=== PATIENT | female | born 1935 | race Caucasian/White ===

== ENCOUNTER 2017-10-31 20:34 | Inpatient (IN) | payer MEDICARE ==
[~2017-10-31 20:34] MED LIST: ISOVUE-370 76%-LOCM 1 ML ONE
--- NOTE | 2017-10-31 23:37 | CT ---
EXAM: CT ANGIOGRAM OF THE HEAD CT PERFUSION 10/31/17 HISTORY: Altered mental status. Expressive aphasia. COMPARISON: None. TECHNIQUE: CT angiogram of the head is performed in the axial plane. Three dimensional reformatted images are james bmitted for interpretation. CT perfusion imaging is performed. FINDINGS: Noncontrast head CT demonstrates preservation of cortical gamboa-white matter differentiation. No midli ne shift. Chronic small vessel ischemic changes identified. No significant change when compared to th e CT performed earlier at [facility]. No pathologic enhancement of the brain parenchyma. CT ANGIOGRAM OF THE HEAD: There is tortuosity of the distal cervical right internal carotid artery. There is also tortuosity of the distal cervical left internal carotid artery. There is atherosclerosis with moderate narrowing of both cavernous carotid segments as well as modera te to severe narrowing of both paraclinoid segments. ANTERIOR CIRCULATION: Congenitally hypoplastic left A1 segment. Right A1 segment is patent and has appropriate luminal diam eter and enhancement. Left and right M1 segments have symmetric enhancement and luminal diameter. The re is mild ectasia and short grade irregularity involving the proximal right A2 segment. There may be mild stenosis. The left A2 segment is patent and slightly diminutive throughout its entire course wh en compared to the contralateral A2 segment. There is symmetric enhancement and overall symmetric dis tribution of vessels in the proximal left and right MCA distribution. POSTERIOR CIRCULATION: Atherosclerosis in intracranial internal carotid arteries with short segment moderate to severe steno sis in the visualized distal left vertebral artery. Limited evaluation of both PICA artery origins. T he basilar artery is patent. No significant stenosis. Left and right P1 segments have symmetric enhan cement and luminal diameter. CT PERFUSION: No evidence of abnormal increased mean transit time. No evidence of abnormal decreased cerebral blood flow or cerebral blood volume. IMPRESSION: 1. Extensive atherosclerosis as detailed above. There is atherosclerosis involving both intracra nial internal carotid arteries and the left vertebral artery. 2. No significant stenosis at the level of the [place]. 3. Asymmetrically prominent right A2 segment. Despite the right A2 segment being prominent, ther e is short segment mild stenosis. 4. No evidence of increased mean transit time. No evidence of decreased blood flow or decreased blood volume. The results of the study discussed with Dr. Bella Mcmillan, 10/31/17 at 11:22 p.m. Code CR POS: [facility]
[2017-11-01] MEDS ORDERED: hydrALAZINE 20 MG/ML VIAL SLOW IVP PRN (01:50)
[2017-11-01] MEDS ORDERED: Bisacodyl 5 MG TAB PO PRN (01:50)
[2017-11-01] MEDS ORDERED: Acetaminophen 325 MG TAB PO PRN (01:50)
[2017-11-01] MEDS ORDERED: Dextrose 5% in Water 1,000 ML IV PRN (01:52)
[2017-11-01] MEDS ORDERED: Dextrose 50% Abboject 50 ML SYRINGE SLOW IVP PRN (01:52)
--- NOTE | 2017-11-01 02:47 | HP ---
PRIMARY CARE PHYSICIAN: Yahaira Mukherjee MD CHIEF COMPLAINT: Difficulty speaking. HISTORY OF PRESENT ILLNESS: Ms. Felipe is a pleasant 82-year-old lady who was seen at [facility] on 11/01/2017. Patient is currently able to speak well and is able to provide most of the history. She reports that around 3:30 p.m. yesterday, she got a call from her . She was slurring her w ords and he could not understand her. She denies any chest pain or shortness of breath. She denies any other motor or sensory symptoms. She was seen in the emergency room at [place] and was subseq uently transferred here. Here, her symptoms have improved. REVIEW OF SYSTEMS: The following complete review of systems was negative, unless otherwise mentioned in the HPI or below: Constitutional: Weight loss or gain, sense of well-being, ability to conduct usual activities, exerc ise tolerance. Skin/Breast: Rash, itching, changes in hair growth or loss, nail changes, breast lumps, tenderness, swelling, nipple discharge. Eyes: Vision, double vision, tearing, blind spots, pain. ENT/Mouth: Headaches (location, time of onset, duration, precipitating factors), vertigo, lightheade dness, injury. Vision, double vision, tearing, blind spots, pain, nose bleeding, colds, obstruction, discharge, dental difficulties, gingival bleeding, dentures, neck stiffness, pain, tenderness, masses in thyroid or other areas. Cardiovascular: Precordial pain, substernal distress, palpitations, syncope, dyspnea on exertion, or thopnea, nocturnal paroxysmal dyspnea, edema, cyanosis, hypertension, heart murmurs, varicosities, ph lebitis, claudication. Respiratory: Pain, shortness of breath, wheezing, stridor, cough, hemoptysis, fever, or night sweats . Gastrointestinal: Poor appetite, dysphagia, indigestion, abdominal pain, heartburn, eructation, naus ea, vomiting, hematemesis, jaundice, constipation, or diarrhea, abnormal stools (jennifer-colored, tarry, bloody, greasy, foul smelling), flatulence, hemorrhoids, recent changes in bowel habits. Genitourinary: Urgency, frequency, dysuria, nocturia, hematuria, polyuria, oliguria, unusual (or fabian nge in) color of urine, stones, hesitancy, change in size of stream, dribbling, acute retention or in continence, libido, potency. Musculoskeletal: Pain, swelling, redness or heat of muscles or joints, limitation, of motion, muscul ar weakness, atrophy, cramps. Neurologic/Psychiatric: Convulsions, paralyzes, tremor, incoordination, paresthesias, difficulties w ith memory of speech, sensory or motor disturbances, or muscular coordination (ataxia, tremor), emoti onal problems, anxiety, depression, previous psychiatric care, unusual perceptions, hallucinations. Allergy/Immunologic: Skin rash, anemia, bleeding tendency, polydipsia, polyuria, intolerance to heat or cold. PAST MEDICAL HISTORY: Significant for diabetes mellitus type 2 and hypertension. PAST SURGICAL HISTORY: Significant for appendectomy and cataract surgery. SOCIAL HISTORY: Patient denies tobacco use, alcohol use, or recreational drug use. FAMILY HISTORY: Diabetes in her father. CODE STATUS: I discussed her code status. She is FULL CODE. ALLERGIES: No known drug allergies. CURRENT MEDICATIONS: Include Singulair 10 mg daily, hydrochlorothiazide 25 mg daily, aspirin 81 mg d aily, metformin 1000 mg 2 times a day, ramipril 10 mg daily, and carvedilol 6.25 mg 2 times a day. O f note, she was previously admitted with a transient ischemic attack. She did not want to start a ST ATIN, because she had side effects in the past. PHYSICAL EXAMINATION: GENERAL: Ms. Felipe is awake and alert, not in acute distress. VITAL SIGNS: Blood pressure is 210/100. Pulse is 71. She is breathing at rate of 16 and saturating 96% on room air. She is afebrile. EYES: No scleral icterus, no conjunctival pallor. ENT: Moist mucosal membranes, no oropharyngeal erythema or exudates. NECK: Supple, nontender, normal range of movement, trachea is midline. RESPIRATORY: Accessory muscles of breathing are not active. Chest wall movements are symmetric bila terally. LUNGS: Clear to auscultation without wheeze, rhonchi, or crepitations. CARDIOVASCULAR: S1 and S2 are heard, regular. Peripheral pulses palpable. No carotid bruit, no per icardial rub. ABDOMEN: Soft, nontender, bowel sounds heard, no hepatomegaly, no splenomegaly. NEUROLOGIC: Cranial nerves II-XII are intact. Power is 5/5 in all 4 extremities. No focal motor or sensory deficits. Deep tendon reflexes are 2+. Plantar reflexes are downgoing bilaterally. MUSCULOSKELETAL: Power in the 4 extremities as described above. SKIN: No rashes or subcutaneous nodules. PSYCHIATRIC: Normal mood, normal affect, patient is oriented to person, place, and time. LYMPHATIC: No cervical lymphadenopathy. LABORATORY DATA: Ms. Felipe's labs and investigations were reviewed. I reviewed her electrocardi ogram, which shows normal sinus rhythm, no ST changes to suggest an acute coronary syndrome. I also reviewed CT scan of the head, noncontrast, which does not show any bleed. She also had a CT angiogra m of the head and neck, which showed extensive atherosclerosis, no significant stenosis at the level of [place]. Her laboratory investigations will be reviewed once available. ASSESSMENT AND PLAN: Ms. Felipe is a pleasant 82-year-old lady who was seen at [facility] on 11/01/2017. Her problem list includes: 1. Expressive aphasia: Most likely secondary to transient ischemic attack. 2. Transient ischemic attack: Her symptoms are almost resolved. She will be admitted to the hospit al for further workup, including MRI brain, 2D echocardiogram, and Neurology consult. She will be st arted on aspirin at 325 mg daily. I am not starting her on STATIN, since she experienced side effect s in the past. 3. Diabetes mellitus: Continue home medications, start Accu-Cheks and insulin sliding scale. 4. Hypertension: Monitor vital signs, titrate antihypertensives as needed. LEVEL OF RISK: High. LEVEL OF COMPLEXITY: High.
[2017-11-01 03:48] LABS: #Eosinphils 0.1 thou/uL (0.0-0.7); #Lymphocytes 1.9 thou/uL (1.20-3.40); #Monocytes 0.6 thou/uL (0.11-0.59); #Neutrophils 5.8 thou/uL (1.40-6.50); %Basophils 0.5 % (0.0-1.0); %Eosinophils 0.9 % (0.0-10.0); %Lymphocytes 22.8 % (21.0-51.0); %Monocytes 7.2 % (0.0-10.0); %Neutrophils 68.7 % (42.0-75.0); Hemoglobin 14.5 g/dL (12.0-16.0); Mean Corpuscular HGB CONC 34.7 g/dL (32.0-36.0); Mean Corpuscular Hemoglobin 33.6 pg (27.0-31.0); Mean Corpuscular Volume 96.9 fl (81.0-99.0); Mean Platelet Volume 10.1 fL (7.4-10.4); Platelet Count 172 thou/uL (130-400); RBC Distribution Width 12.5 % (11.5-14.5); Red Blood Cell (RBC) Count 4.32 mill/uL (4.20-5.40); White Blood Cell (WBC) Count 8.4 thou/uL (4.8-10.8)
[2017-11-01 04:09] LABS: Anion Gap 12 mmol/L (10-20); BUN (Urea Nitrogen) 16 mg/dL (9.8-20.1); Calc. Creatinine Clearance 0 mL/min (70-130); Carbon Dioxide 26 mmol/L (23-31); Cardiac Risk 4.8 (Less than 4.5); Chloride 102 mmol/L (98-107); Cholesterol 224 mg/dl (< 200 Desired); Estimated GFR-MDRD 60; Glucose 214 mg/dL (83-110); HDL Cholesterol 47 mg/dL (>60 Neg Risk); LDL Cholesterol, Calculated 142 mg/dL; Sodium 136 mmol/L (136-145); Triglycerides 173 mg/dL (Less than 150)
[2017-11-01] MEDS ORDERED: Aspirin 325 MG TAB ONE (10:00)
[2017-11-01] MEDS ORDERED: Enoxaparin Sodium 40 MG/0.4 ML SYRINGE ONE (10:00)
[2017-11-01 11:59] VITALS: BMI 39.2
[2017-11-01] MEDS: Enoxaparin Sodium 40 MG/0.4 ML SYRINGE SC SCH (13:22)
[2017-11-01] MEDS: Aspirin 325 mg Enteric Coated Tablet PO SCH (13:22)
[2017-11-01] MEDS: hydrALAZINE 20 MG/ML VIAL SLOW IVP PRN (13:45)
--- NOTE | 2017-11-01 13:45 | MRI ---
EXAM: BRAIN MRI WITHOUT CONTRAST: HISTORY: Transfer for care for acute mental status change. Slurred speech. Facial droop. COMPARISON: 11/22/16. TECHNIQUE: A brain MRI is performed without intravenous Gadolinium administration. Multisequential, multiplanar imaging is performed. FINDINGS: Calvarium has a normal T1 marrow signal intensity. Midline brain parenchymal structures are unremark able. Stable atrophy along the anterior aspect of the corpus callosum. No parenchymal mass, mass ef fect, or midline shift. Albert volume is age appropriate. Cortical gamboa-white matter differentiation is preserved. Ventricles and sulci are identified. No hemorrhage on the axial gradient echo sequence. Central arterial flow voids are maintained. Small focus of restricted diffusion involving the left a nd right centrum semiovale. Additional small focus of restricted diffusion in the right temporal lob e subinsular white matter. Malacic change due to remote lacunar infarcts in the posterior left and right gustafson radiata are iden tified. Adequate aeration of the sinuses and mastoid air cells. IMPRESSION: Small foci of restricted diffusion involving the white matter structures in the left and right centru m semiovale. Small focus of restricted diffusion in the right temporal subinsular white matter. POS: [facility]
--- NOTE | 2017-11-01 13:50 | CON ---
NEUROLOGY CONSULTATION NOTE DATE OF CONSULTATION: 11/01/2017 CONSULTING PHYSICIAN: Hospitalist Service. IMPRESSION: 1. Transient ischemic attack. 2. Hypertension. 3. Diabetes. 4. Extensive small vessel ischemic changes on MRI. PLAN: 1. Aspirin. 2. Blood pressure control. 3. Statins cannot be used due to her intolerance. 4. The patient can be discharged home. HISTORY OF PRESENT ILLNESS: Ms. Felipe is an 82-year-old white female with the above noted medica l problems. She presented to the emergency room in [place] with expressive aphasia. She denied a ny right-sided weakness or numbness. The episode lasted approximately 3 hours by her account. She w as transferred here for care. She has had a CTA done, which showed some regions of the supraclinoid stenosis, but nothing in the extracranial region of significance. MRI of the brain was done earlier today, which showed extensive periventricular white matter ischemic changes that appears chronic. I did not note any areas of acute ischemic change on imaging at this point. She has never had any similar symptoms of this nature in the past. She denies any history of double vision, difficulty swallowing, slurred speech, facial numbness, headache or vertigo. PAST MEDICAL HISTORY: Listed above. ALLERGIES: None. SOCIAL HISTORY: No tobacco or alcohol use. FAMILY HISTORY: Noncontributory. REVIEW OF SYSTEMS: Otherwise, negative. PHYSICAL EXAMINATION: VITAL SIGNS: Blood pressure 215/105, pulse 81, respirations 18 and temperature 98.9. HEENT: Pupils are equal and reactive. Conjunctivae clear. Oropharynx clear. NECK: Supple. EXTREMITIES: No cyanosis. NEUROLOGIC: She is alert and appropriate. Her speech is fluent and clear. Cranial nerves II-XII we re intact. Motor exam showed good strength bilaterally. There was no fix or drift. Sensation was i ntact to light touch. She can walk independently. No abnormal movements were seen. IMAGING DATA: EKG showed sinus rhythm. Echocardiogram is pending. SUMMARY: This is an elderly woman with risk factors for vascular disease and she presents with trans ient aphasia, suggesting a peripheral vessel transient occlusion. She was not on antiplatelet therap y. She cannot tolerate statins. I would start with aspirin and be happy to follow up with her as an outpatient.
[2017-11-01] MEDS ORDERED: Ramipril 5 MG CAP PO SCH (15:00)
--- NOTE | 2017-11-01 16:05 | PDOC.EVN ---
Event Note - Event Note Event Note: Pt seen and examined.chart reviewed in detail. doing better. MRi shows small vessel chr ischemic chnages.Cont full dose ASA.pt reports statin intolerance.start Fish oil for now. Neurology recs noted. Will Dc home if BP stabilizes.Restart home meds and monitor. symptom free for now. ECHo w NL EF
[2017-11-01] MEDS: Carvedilol 3.125 MG TAB PO SCH (17:09)
[2017-11-01] MEDS: HumaLOG 300 UNITS/3 ML VIAL SC PRN (17:10)
[2017-11-01] MEDS ORDERED: Atorvastatin Calcium 10 MG TAB PO SCH (21:00)
[2017-11-02] MEDS: hydrALAZINE 20 MG/ML VIAL SLOW IVP PRN ×2 (00:06→15:41)
[2017-11-02] MEDS: HumaLOG 300 UNITS/3 ML VIAL SC PRN ×3 (06:31→15:49)
[2017-11-02] MEDS: Montelukast Sodium 10 mg Tablet PO SCH (08:50)
[2017-11-02] MEDS: Enoxaparin Sodium 40 MG/0.4 ML SYRINGE SC SCH (08:50)
[2017-11-02] MEDS: Ramipril 5 MG CAP PO SCH (08:51)
[2017-11-02] MEDS: Aspirin 325 mg Enteric Coated Tablet PO SCH (08:51)
[2017-11-02] MEDS: Hydrochlorothiazide 25 MG TAB PO SCH (08:51)
[2017-11-02] MEDS: Carvedilol 3.125 MG TAB PO SCH ×2 (08:51→17:07)
[2017-11-02] MEDS: metFORMIN 500 MG TAB PO SCH ×2 (08:52→17:06)
[2017-11-02] MEDS: Amlodipine 10 MG TAB PO SCH (11:23)
--- NOTE | 2017-11-02 15:45 | PDOC.PN ---
- Subjective Encounter Start Date: 11/02/17 Encounter Start Time: 15:43 Subjective: no new complaints -: no headache,vison chnages,nausea - Objective Resuscitation Status: Resuscitation Status FULL:Full Resuscitation MAR Reviewed: Yes Vital Signs & Weight: Vital Signs (12 hours) Temp Pulse Resp BP BP Pulse Ox 11/02/17 15:41 70 194/80 H 11/02/17 15:39 98.6 F 70 20 194/80 H 95 11/02/17 11:54 97.8 F 67 20 188/98 H 95 11/02/17 11:23 69 16 211/103 H 11/02/17 08:00 97.8 F 75 20 11/02/17 07:37 97.8 F 75 20 190/100 H 95 11/02/17 04:20 184/82 H 11/02/17 04:05 97.8 F 67 20 224/106 H 98 Weight Weight 242 lb 12.8 oz I&O: 11/01/17 11/02/17 11/03/17 06:59 06:59 06:59 Intake Total 610 480 Output Total 2 Balance 608 480 Result Diagrams: 11/01/17 03:29 11/01/17 03:29 Additional Labs: Accuchecks 11/02/17 11/02/17 11/01/17 11:00 05:10 21:16 POC Glucose 257 H 211 H 270 H 11/01/17 16:59 POC Glucose 256 H Phys Exam - Physical Examination Constitutional: NAD HEENT: PERRLA, moist MMs, sclera anicteric, TM's clear, oral pharynx no lesions , 2+ tonsils flushed Neck: no nodes, no JVD, supple, full ROM Respiratory: no wheezing, no rales, no rhonchi, clear to auscultation bilateral Cardiovascular: RRR, no significant murmur, no rub, gallop Gastrointestinal: soft, non-tender, no distention, positive bowel sounds Musculoskeletal: no edema, pulses present Neurological: non-focal, normal sensation, moves all 4 limbs Psychiatric: normal affect, A&O x 3 Skin: no rash Dx/Plan (1) TIA (transient ischemic attack) Status: Acute Comment: ASA.Statin intolerance (2) Hypertensive urgency Code(s): I16.0 - HYPERTENSIVE URGENCY Status: Acute (3) DM type 2 (diabetes mellitus, type 2) Status: Acute - Plan DVT proph w/SCDs Add Norvasc.increase Coreg w HR monitoring.PRN clonidine -: DC home only if BP better controlled -: cont ASA * . Review of Systems - Review of Systems Constitutional: negative: fever, chills, sweats, weakness, malaise, other ENT: negative: Ear Pain, Ear Discharge, Nose Pain, Nose Discharge, Nose Congestion, Mouth Pain, Mouth Swelling, Throat Pain, Throat Swelling, Other Respiratory: negative: Cough, Dry, Shortness of Breath, Hemoptysis, SOB with Excertion, Pleuritic Pain, Sputum, Wheezing Cardiovascular: negative: chest pain, palpitations, orthopnea, paroxysmal nocturnal dyspnea, edema, light headedness, other Gastrointestinal: negative: Nausea, Vomiting, Abdominal Pain, Diarrhea, Constipation, Melena, Hematochezia, Other Genitourinary: negative: Dysuria, Frequency, Incontinence, Hematuria, Retention , Other Musculoskeletal: negative: Neck Pain, Shoulder Pain, Arm Pain, Back Pain, Hand Pain, Leg Pain, Foot Pain, Other Neurological: negative: Weakness, Numbness, Incoordination, Change in Speech, Confusion, Seizures, Other - Medications/Allergies Allergies/Adverse Reactions: Allergies Allergy/AdvReac Type Severity Reaction Status Date / Time No Known Drug Allergies Allergy Verified 11/21/16 14:56 Medications: Current Medications Acetaminophen (Tylenol) 650 mg PO Q4H PRN PRN Reason: Headache/Fever or Pain Amlodipine Besylate (Norvasc) 10 mg PO DAILY [facility] Last Admin: 11/02/17 11:23 Dose: 10 mg Aspirin (Ecotrin) 325 mg PO DAILY [facility] Last Admin: 11/02/17 08:51 Dose: 325 mg Bisacodyl (Dulcolax) 10 mg PO DAILYPRN PRN PRN Reason: Constipation Carvedilol (Coreg) 12.5 mg PO BID [facility] Clonidine (Catapres) 0.1 mg PO Q4H PRN PRN Reason: SBP >160 Dextrose/Water (Dextrose 50%) 25 gm SLOW IVP PRN PRN PRN Reason: Hypoglycemia Enoxaparin Sodium (Lovenox) 40 mg SC 0900 [facility] Last Admin: 11/02/17 08:50 Dose: 40 mg Glucagon (Glucagon) 1 mg IM PRN PRN PRN Reason: Hypoglycemia Hydralazine HCl (Apresoline) 10 mg SLOW IVP Q4H PRN PRN Reason: BP > 190/90 Last Admin: 11/02/17 15:41 Dose: 10 mg Hydrochlorothiazide (Hydrochlorothiazide) 25 mg PO DAILY [facility] Last Admin: 11/02/17 08:51 Dose: 25 mg Dextrose/Water (D5w) 1,000 mls @ 0 mls/hr IV .Q0M PRN; As Directed PRN Reason: Hypoglycemia Insulin Human Lispro (Humalog) 0 units SC .MILD SLIDING SCALE PRN PRN Reason: Mild Correctional Scale Last Admin: 11/02/17 11:24 Dose: 4 units Metformin HCl (Glucophage) 1,000 mg PO BID-[facility] Last Admin: 11/02/17 08:52 Dose: Not Given Montelukast Sodium (Singulair) 10 mg PO DAILY [facility] Last Admin: 11/02/17 08:50 Dose: 10 mg Ramipril (Altace) 10 mg PO DAILY [facility] Last Admin: 11/02/17 08:51 Dose: 10 mg
[2017-11-03] MEDS: cloNIDine 0.1 MG TAB PO PRN ×2 (00:31→11:20)
[2017-11-03] MEDS: HumaLOG 300 UNITS/3 ML VIAL SC PRN ×3 (06:17→17:22)
[2017-11-03] MEDS: metFORMIN 500 MG TAB PO SCH ×2 (08:16→17:22)
[2017-11-03] MEDS: Hydrochlorothiazide 25 MG TAB PO SCH (08:16)
[2017-11-03] MEDS: Enoxaparin Sodium 40 MG/0.4 ML SYRINGE SC SCH (08:16)
[2017-11-03] MEDS: Amlodipine 10 MG TAB PO SCH (08:17)
[2017-11-03] MEDS: Ramipril 5 MG CAP PO SCH (08:17)
[2017-11-03] MEDS: Carvedilol 3.125 MG TAB PO SCH (08:17)
[2017-11-03] MEDS: Montelukast Sodium 10 mg Tablet PO SCH (08:18)
[2017-11-03] MEDS: Aspirin 325 mg Enteric Coated Tablet PO SCH (08:18)
--- NOTE | 2017-11-03 15:31 | CT ---
CT BRAIN WITHOUT CONTRAST: Technique: Multiple axial tomograms were obtained through the head without IV enhancement. History: Stroke alert. New left sided weakness which is resolving according to his history. Comparison: 11-01-17. That exam revealed evidence of tiny lacunar infarcts in both cerebral hemispheres . FINDINGS: There is evidence of severe chronic ischemic white matter change which was also noted on MRI. Acute a nd subacute lacunar infarcts within the ischemic white matter change cannot be assessed by CT. There is no evidence of cortical infarct. No evidence of hemorrhage. No evidence of mass effect. IMPRESSION: Severe chronic ischemic white matter changes. No evidence of acute cortical infarct or hemorrhage. Findings were related to ordering physician at 1:33 p.m. POS: [facility]
--- NOTE | 2017-11-03 15:34 | PDOC.PN ---
- Subjective Encounter Start Date: 11/03/17 Encounter Start Time: 15:32 Subjective: DC done earlier today but pt had a code green prior to leaving -: nurses reported chnages in mentation w slurred speech -: at bedside.Pt seen & examined-baseline now - Objective Resuscitation Status: Resuscitation Status FULL:Full Resuscitation MAR Reviewed: Yes Vital Signs & Weight: Vital Signs (12 hours) Temp Pulse Pulse Resp BP BP BP 11/03/17 13:06 62 141/62 H 11/03/17 12:44 57 L 141/46 H 11/03/17 11:20 185/68 H 11/03/17 09:20 16 168/62 H 11/03/17 08:15 98.5 F 70 16 11/03/17 08:00 98.5 F 70 16 11/03/17 04:40 136/74 11/03/17 04:00 98.3 F 67 16 182/68 H BP Pulse Ox 11/03/17 13:06 11/03/17 12:44 11/03/17 11:20 11/03/17 09:20 11/03/17 08:15 223/86 H 95 11/03/17 08:00 11/03/17 04:40 11/03/17 04:00 91 L Weight Weight 246 lb I&O: 11/02/17 11/03/17 11/04/17 06:59 06:59 06:59 Intake Total 610 1560 960 Output Total 2 Balance 608 1560 960 Result Diagrams: 11/01/17 03:29 11/01/17 03:29 Additional Labs: Accuchecks 11/03/17 11/03/17 11/03/17 13:09 10:51 06:01 POC Glucose 232 H 264 H 208 H 11/02/17 11/02/17 11/02/17 22:01 16:59 15:49 POC Glucose 175 H 277 H 377 H Radiology Reviewed by me: Yes (Stat Brain CT-) Phys Exam - Physical Examination Constitutional: NAD HEENT: PERRLA, moist MMs, sclera anicteric, oral pharynx no lesions Neck: no nodes, no JVD, supple, full ROM Respiratory: no wheezing, no rales, no rhonchi, clear to auscultation bilateral Cardiovascular: RRR, no significant murmur Gastrointestinal: soft, non-tender, no distention, positive bowel sounds Musculoskeletal: no edema, pulses present Neurological: non-focal, normal sensation, moves all 4 limbs Psychiatric: normal affect, A&O x 3 Skin: no rash Dx/Plan (1) TIA (transient ischemic attack) Status: Acute Comment: ASA.Statin intolerance (2) Hypertensive urgency Code(s): I16.0 - HYPERTENSIVE URGENCY Status: Acute (3) DM type 2 (diabetes mellitus, type 2) Status: Acute - Plan DVT proph w/SCDs reports similar symptoms for months-carmen early dementia -: will refer to Neurology as an Outpt.carmen vascular but FH of [facility]'s -: Brain Ct w/o acute changes. -: Low HR and BP noted.will reduce Coreg back to home doses -: Cancel DC and monitor Overnight.pt agreeable * . Review of Systems - Review of Systems Constitutional: negative: fever, chills, sweats, weakness, malaise, other Respiratory: negative: Cough, Dry, Shortness of Breath, Hemoptysis, SOB with Excertion, Pleuritic Pain, Sputum, Wheezing Cardiovascular: negative: chest pain, palpitations, orthopnea, paroxysmal nocturnal dyspnea, edema, light headedness, other Gastrointestinal: negative: Nausea, Vomiting, Abdominal Pain, Diarrhea, Constipation, Melena, Hematochezia, Other Genitourinary: negative: Dysuria, Frequency, Incontinence, Hematuria, Retention , Other Musculoskeletal: negative: Neck Pain, Shoulder Pain, Arm Pain, Back Pain, Hand Pain, Leg Pain, Foot Pain, Other Neurological: negative: Weakness, Numbness, Incoordination, Change in Speech, Confusion, Seizures, Other - Medications/Allergies Allergies/Adverse Reactions: Allergies Allergy/AdvReac Type Severity Reaction Status Date / Time No Known Drug Allergies Allergy Verified 11/21/16 14:56 Medications: Current Medications Acetaminophen (Tylenol) 650 mg PO Q4H PRN PRN Reason: Headache/Fever or Pain Amlodipine Besylate (Norvasc) 10 mg PO DAILY [facility] Last Admin: 11/03/17 08:17 Dose: 10 mg Aspirin (Ecotrin) 325 mg PO DAILY [facility] Last Admin: 11/03/17 08:18 Dose: 325 mg Bisacodyl (Dulcolax) 10 mg PO DAILYPRN PRN PRN Reason: Constipation Carvedilol (Coreg) 6.25 mg PO BID[facility] Clonidine (Catapres) 0.1 mg PO Q4H PRN PRN Reason: SBP >160 Last Admin: 11/03/17 11:20 Dose: 0.1 mg Dextrose/Water (Dextrose 50%) 25 gm SLOW IVP PRN PRN PRN Reason: Hypoglycemia Enoxaparin Sodium (Lovenox) 40 mg SC 0900 [facility] Last Admin: 11/03/17 08:16 Dose: 40 mg Glucagon (Glucagon) 1 mg IM PRN PRN PRN Reason: Hypoglycemia Hydralazine HCl (Apresoline) 10 mg SLOW IVP Q4H PRN PRN Reason: BP > 190/90 Last Admin: 11/02/17 15:41 Dose: 10 mg Hydrochlorothiazide (Hydrochlorothiazide) 25 mg PO DAILY [facility] Last Admin: 11/03/17 08:16 Dose: 25 mg Dextrose/Water (D5w) 1,000 mls @ 0 mls/hr IV .Q0M PRN; As Directed PRN Reason: Hypoglycemia Insulin Human Lispro (Humalog) 0 units SC .MILD SLIDING SCALE PRN PRN Reason: Mild Correctional Scale Last Admin: 11/03/17 11:18 Dose: 4 units Metformin HCl (Glucophage) 1,000 mg PO BID-[facility] Last Admin: 11/03/17 08:16 Dose: 1,000 mg Montelukast Sodium (Singulair) 10 mg PO DAILY [facility] Last Admin: 11/03/17 08:18 Dose: 10 mg Ramipril (Altace) 10 mg PO DAILY [facility] Last Admin: 11/03/17 08:17 Dose: 10 mg
[2017-11-03] MEDS: Carvedilol 6.25 MG TAB PO SCH (17:22)
--- NOTE | 2017-11-03 21:49 | CON ---
DATE OF CONSULTATION: 11/03/2017 REASON FOR CONSULTATION: This is a re-consultation done by Dr. Dena Leone for acute onset left fa cial weakness and left-sided upper extremity weakness. HISTORY OF PRESENT ILLNESS: Ms. Felipe is a pleasant 82-year-old female, who has been r e-consulted for evaluation of acute onset left facial weakness and left upper extremity weakness. Ap parently, the patient had presented on 11/01/2017 with a complaint of acute onset of expressive aphas ia and right facial droop. Her symptoms had resolved on arrival to the ER. She had CTA head and nec k with CT brain perfusion, which were unremarkable. She was not given any TPA as her symptoms had re solved and no endovascular procedure was performed due to no endovascular abnormality identified. Sh e had MRI brain done, which did shows 3 tiny areas of restricted diffusion suggestive of acute stroke . She was started on aspirin 325 mg daily and was planned for discharge to home today. She had got dressed and while waiting for her , she had a sudden onset of left facial droop and left upper extremity weakness. Code green was initiated. She had a CT head without contrast, which showed no acute intracranial abnormality. Her symptoms resolved within 5 minutes. I have been asked to [facility] evaluate for this recurrent episode. On my evaluation, the patient does not recall the symptoms. She denies having any headache, chest pain, palpitation, vision changes, diplopia, ptosis, numbness, tingling, or weakness. She denies dysarthria. PHYSICAL EXAMINATION: VITAL SIGNS: Blood pressure of 140/52, pulse of 61, temperature of 98, respirations of 20, O2 sats o f 95% on room air. GENERAL: Well-developed, well-nourished female in no apparent distress. RESPIRATORY: Clear to auscultation bilaterally. CARDIOVASCULAR: Regular rate and rhythm. NEUROLOGIC: Mental status: The patient is awake, alert, oriented x3. Speech and language: Fluent speech. Cranial nerves: Pupils are 3 mm and reactive. Visual hunt are intact. Extraocular muscl es are intact. No nystagmus is noted. Face is symmetric. Tongue and uvula midline. Motor exam tacos wed normal tone and bulk with 5/5 strength in both upper and lower extremities. Sensory: Sensation is intact and symmetric. Coordination intact to [id number] tapping bilaterally. IMAGING STUDIES: CT head without contrast done today was reviewed, which showed no acute intracrania l abnormality. MRI brain without contrast done on 11/01/2017 was reviewed, which showed 3 tiny areas of restricted diffusion. IMPRESSION: 1. Embolic stroke. 2. Malignant hypertension. 3. Diabetes. Ms. Felipe is a pleasant 82-year-old female who presented with the initial episode of ex pressive aphasia and right-sided weakness and now had an episode of left facial droop and left upper extremity weakness. This has now resolved. On my neurological exam, there is no focal weakness note d. I have reviewed her MRI brain, which does show 3 tiny areas of restricted diffusion. They are in a different territory. Given that, underlying embolism needs to be excluded. I have reviewed her t elemetry report, which has been normal. At this time, we will recommend continuing her on aspirin 32 5 mg daily for secondary stroke prevention. I will keep her in the hospital overnight for observatio n. If she is stable and no recurrence of episode, she is okay to be discharged to home. She will ne ed a followup with Cardiology as outpatient to rule out paroxysmal AFib. Thank you for your consultation.
[2017-11-04] MEDS: HumaLOG 300 UNITS/3 ML VIAL SC PRN (06:02)
[2017-11-04] MEDS: Amlodipine 10 MG TAB PO SCH (07:59)
[2017-11-04] MEDS: cloNIDine 0.1 MG TAB PO PRN (07:59)
[2017-11-04] MEDS: Montelukast Sodium 10 mg Tablet PO SCH (07:59)
[2017-11-04] MEDS: Aspirin 325 mg Enteric Coated Tablet PO SCH (07:59)
[2017-11-04] MEDS: Hydrochlorothiazide 25 MG TAB PO SCH (07:59)
[2017-11-04] MEDS: metFORMIN 500 MG TAB PO SCH ×2 (08:00→16:44)
[2017-11-04] MEDS: Ramipril 5 MG CAP PO SCH (08:00)
[2017-11-04] MEDS: Carvedilol 6.25 MG TAB PO SCH ×2 (08:00→16:44)
[2017-11-04] MEDS: Enoxaparin Sodium 40 MG/0.4 ML SYRINGE SC SCH (08:05)
[2017-11-04] MEDS ORDERED: cloNIDine 0.1 MG TAB PO SCH (09:00)
[2017-11-04] MEDS ORDERED: Hydrochlorothiazide 25 MG TAB PO SCH (09:00)
--- NOTE | 2017-11-04 14:06 | PDOC.PN ---
- Subjective Encounter Start Date: 11/04/17 Encounter Start Time: 14:04 Subjective: feels much better.no new events - Objective MAR Reviewed: Yes Vital Signs & Weight: Vital Signs (12 hours) Temp Pulse Resp BP BP BP Pulse Ox 11/04/17 12:00 98.2 F 61 20 158/59 H 95 11/04/17 09:47 142/58 H 11/04/17 09:07 198/80 H 11/04/17 08:00 98.6 F 66 20 198/80 H 93 L 11/04/17 07:59 66 198/80 H 11/04/17 07:35 98.6 F 66 20 198/80 H 93 L 11/04/17 05:58 158/72 H 11/04/17 04:43 97.6 F 97 16 Weight Weight 243 lb I&O: 11/03/17 11/04/17 11/05/17 06:59 06:59 06:59 Intake Total 360 Balance 360 Result Diagrams: 11/01/17 03:29 11/01/17 03:29 Additional Labs: Accuchecks 11/04/17 11/04/17 11/03/17 10:57 06:01 22:03 POC Glucose 233 H 181 H 205 H Microbiology 10/31/17 17:43 Urine giron catheter Urine Culture - Final NO GROWTH AT 48 HOURS 10/31/17 18:45 Venous blood - Left Hand Blood Culture - Preliminary NO GROWTH AT 48 HOURS Radiology Reviewed by me: Yes Phys Exam - Physical Examination Constitutional: NAD HEENT: PERRLA, moist MMs, sclera anicteric, oral pharynx no lesions Neck: no nodes, no JVD, supple, full ROM Respiratory: no wheezing, no rales, no rhonchi, clear to auscultation bilateral Cardiovascular: RRR, no significant murmur Gastrointestinal: soft, non-tender, no distention, positive bowel sounds Musculoskeletal: no edema, pulses present Neurological: non-focal, normal sensation, moves all 4 limbs Dx/Plan (1) TIA (transient ischemic attack) Status: Acute Comment: ASA.Statin intolerance (2) Hypertensive urgency Code(s): I16.0 - HYPERTENSIVE URGENCY Status: Acute (3) DM type 2 (diabetes mellitus, type 2) Status: Acute - Plan DVT proph w/SCDs DC home if BP remains stable. -: OP cardiology f/u for possible embolic stroke.NSR.ECHO w/o cardiomyopathy -: HD stable * . Review of Systems - Review of Systems Constitutional: negative: fever, chills, sweats, weakness, malaise, other ENT: negative: Ear Pain, Ear Discharge, Nose Pain, Nose Discharge, Nose Congestion, Mouth Pain, Mouth Swelling, Throat Pain, Throat Swelling, Other Respiratory: negative: Cough, Dry, Shortness of Breath, Hemoptysis, SOB with Excertion, Pleuritic Pain, Sputum, Wheezing Cardiovascular: negative: chest pain, palpitations, orthopnea, paroxysmal nocturnal dyspnea, edema, light headedness, other Gastrointestinal: negative: Nausea, Vomiting, Abdominal Pain, Diarrhea, Constipation, Melena, Hematochezia, Other Genitourinary: negative: Dysuria, Frequency, Incontinence, Hematuria, Retention , Other Musculoskeletal: negative: Neck Pain, Shoulder Pain, Arm Pain, Back Pain, Hand Pain, Leg Pain, Foot Pain, Other Neurological: negative: Weakness, Numbness, Incoordination, Change in Speech, Confusion, Seizures, Other - Medications/Allergies Allergies/Adverse Reactions: Allergies Allergy/AdvReac Type Severity Reaction Status Date / Time No Known Drug Allergies Allergy Verified 11/21/16 14:56 Medications: Current Medications Acetaminophen (Tylenol) 650 mg PO Q4H PRN PRN Reason: Headache/Fever or Pain Amlodipine Besylate (Norvasc) 10 mg PO DAILY [facility] Last Admin: 11/04/17 07:59 Dose: 10 mg Aspirin (Ecotrin) 325 mg PO DAILY [facility] Last Admin: 11/04/17 07:59 Dose: 325 mg Bisacodyl (Dulcolax) 10 mg PO DAILYPRN PRN PRN Reason: Constipation Carvedilol (Coreg) 6.25 mg PO BID-[facility] Last Admin: 11/04/17 08:00 Dose: 6.25 mg Clonidine (Catapres) 0.1 mg PO Q4H PRN PRN Reason: SBP >160 Last Admin: 11/04/17 07:59 Dose: 0.1 mg Dextrose/Water (Dextrose 50%) 25 gm SLOW IVP PRN PRN PRN Reason: Hypoglycemia Enoxaparin Sodium (Lovenox) 40 mg SC 0900 [facility] Last Admin: 11/04/17 08:05 Dose: 40 mg Glucagon (Glucagon) 1 mg IM PRN PRN PRN Reason: Hypoglycemia Hydralazine HCl (Apresoline) 10 mg SLOW IVP Q4H PRN PRN Reason: BP > 190/90 Last Admin: 11/02/17 15:41 Dose: 10 mg Hydrochlorothiazide (Hydrochlorothiazide) 25 mg PO QAM [facility] Dextrose/Water (D5w) 1,000 mls @ 0 mls/hr IV .Q0M PRN; As Directed PRN Reason: Hypoglycemia Insulin Human Lispro (Humalog) 0 units SC .MILD SLIDING SCALE PRN PRN Reason: Mild Correctional Scale Last Admin: 11/04/17 06:02 Dose: 2 units Metformin HCl (Glucophage) 1,000 mg PO BID-[facility] Last Admin: 11/04/17 08:00 Dose: 1,000 mg Montelukast Sodium (Singulair) 10 mg PO DAILY [facility] Last Admin: 11/04/17 07:59 Dose: 10 mg Ramipril (Altace) 10 mg PO DAILY [facility] Last Admin: 11/04/17 08:00 Dose: 10 mg
[2017-11-04 15:52] VITALS: BP 167/57; TEMP 97.8
[2017-11-05] MEDS ORDERED: Hydrochlorothiazide 25 MG TAB PO SCH (09:00)
== END 2017-11-04 17:19 | disposition home or self-care (01) | DRG 69 ==
LOC: ERS 20:34 → ERHOLD 11-01 00:16 → 2SE 11-01 00:49 → OBSVTOIN 11-03 17:10
PROVIDERS: ADMIT Internal Medicine; ATTEND Internal Medicine
DX: G45.9 Transient cerebral ischemic attack, unspecified (principal); G81.94 Hemiplegia, unspecified affecting left nondominant side; E11.9 Type 2 diabetes mellitus without complications; R47.81 Slurred speech; I10 Essential (primary) hypertension; Z79.82 Long term (current) use of aspirin; Z86.73 Personal history of transient ischemic attack (TIA), and cerebral infarction without residual deficits; R29.810 Facial weakness; I16.0 Hypertensive urgency
CPT/HCPCS: 0042T; 36415; 36416; 70450; 70496; 70551; 80048; 80061; 85025; 93306; 96372; G8978-GP-CH; G8979-GP-CH; G8980-GP-CH; G8987-GO-CH; G8988-GO-CH; G8989-GO-CH; G8996-GN-CH; G8997-GN-CH; J0360; J1650

== ENCOUNTER 2020-01-07 11:14 | Inpatient (IN) | payer MEDICARE ==
--- NOTE | 2020-01-07 11:52 | RAD ---
RADIOGRAPH CHEST 1 VIEW: DATE: 01/07/2020 HISTORY: 84-year-old female with altered mental status. Hyperglycemia. Concern for aspiration and pneumonia. FINDINGS: There are no airspace densities, pulmonary edema, pneumothorax, or cardiomegaly. The lateral costophr enic angles are sharp. Pulmonary scarring at left lateral base. Chronic subluxation of right glenohumeral joint related to old humeral head fracture deformity. IMPRESSION: No acute cardiopulmonary findings.
[2020-01-07 12:04] LABS: #Eosinphils 0.2 thou/uL (0.0-0.7); #Lymphocytes 1.7 thou/uL (1.20-3.40); #Monocytes 0.5 thou/uL (0.11-0.59); #Neutrophils 6.3 thou/uL (1.40-6.50); %Basophils 0.4 % (0.0-1.0); %Eosinophils 2.2 % (0.0-10.0); %Monocytes 5.6 % (0.0-10.0); %Neutrophils 72.8 % (42.0-75.0); Hemoglobin 14.1 g/dL (12.0-16.0); Mean Corpuscular Hemoglobin 31.4 pg (27.0-31.0); Mean Corpuscular Volume 98.1 fL (78.0-98.0); Mean Platelet Volume 10.3 fL (7.4-10.4); Platelet Count 195 thou/uL (130-400); RBC Distribution Width 12.4 % (11.5-14.5); Red Blood Cell (RBC) Count 4.49 mill/uL (4.20-5.40); White Blood Cell (WBC) Count 8.7 thou/uL (4.8-10.8)
--- NOTE | 2020-01-07 12:13 | CT ---
Head CT without contrast 01/07/2020: COMPARISON: 11/03/2017 HISTORY: Syncope, altered mental status TECHNIQUE: Axial CT imaging at 5 mm intervals from vertex through skull base without contrast FINDINGS: Imaged paranasal sinuses and mastoid air cells are well-aerated. Atherosclerotic calcificat ion of the cavernous carotid arteries and distal vertebral arteries noted. No displaced calvarial fracture. No intracranial hemorrhage, midline shift, or mass effect. There is extensive periventricul ar, deep, and subcortical white matter hypodensity, evidence of extensive small vessel disease. There is encephalomalacia within the temporal region on the right suggesting an area of prior infarct ion. IMPRESSION: No intracranial hemorrhage. Severe small vessel disease with evidence of prior right temp oral infarction. If there is clinical concern for acute infarction, brain MRI advised.
[2020-01-07 12:29] LABS: ALT (SGPT) 17 U/L (8-55); AST (SGOT) 13 U/L (5-34); Albumin 3.9 g/dL (3.4-4.8); Alkaline Phosphatase 75 U/L (40-110); Anion Gap 14 mmol/L (10-20); BUN (Urea Nitrogen) 25 mg/dL (9.8-20.1); Bilirubin, Total 0.4 mg/dL (0.2-1.2); Calc. Creatinine Clearance 0 mL/min (70-130); Calcium 9.7 mg/dL (7.8-10.44); Carbon Dioxide 29 mmol/L (23-31); Chloride 103 mmol/L (98-107); Estimated GFR-MDRD 56; Globulin 2.6 g/dL (2.4-3.5); Glucose 104 mg/dL (83-110); Potassium 4.3 mmol/L (3.5-5.1); Protein, Total 6.5 g/dL (6.0-8.3); Sodium 142 mmol/L (136-145)
[2020-01-07 12:53] LABS: Bacteria/HPF 3+ HPF (None Seen); Bilirubin Negative (Negative); Blood, Urine Negative (Negative); Clarity Turbid (Clear); Glucose, Urine (Dipstick) Normal (Negative); Leukocyte 25 Leu/uL (Negative); Nitrite 2+ (Negative); Protein, Urine (Dipstick) 20 mg/dL (Neg-Trace); RBC/HPF 0-3 HPF (0-3); Squamous Epithelial 0-3 HPF (0-3); Urobilinogen Normal mg/dL (Less than 2)
[2020-01-07] MEDS ORDERED: cefTRIAXone\\ROCEPHIN 2 GM VIAL ONE (13:53)
[2020-01-07] MEDS ORDERED: Aspirin Chewable 81 MG TAB ONE (14:08)
[2020-01-07] MEDS ORDERED: Senokot S 8.6-50 MG TAB PO PRN (14:22)
[2020-01-07] MEDS ORDERED: Acetaminophen 325 MG TAB PO PRN (14:22)
[2020-01-07] MEDS ORDERED: PROVENTIL INHALER 6.7 G (200 INHALATIONS) INH PRN (14:23)
[2020-01-07] MEDS ORDERED: cloNIDine 0.1 MG TAB PO PRN (14:23)
[2020-01-07 15:11] LABS: Cardiac Risk 4.3 (Less than 4.5)
--- NOTE | 2020-01-07 15:41 | MRI ---
MRI BRAIN WITHOUT CONTRAST: HISTORY: CVA, syncope, altered mental status COMPARISON: 11/01/2017 CORRELATION: CT scan from 01/07/2020. FINDINGS: There is a tiny focus of restricted diffusion in the right centrum semiovale and a 13 mm focus of res tricted diffusion in the posterior medial aspect of the left frontal lobe. There is encephalomalacia due to old infarction in the right temporal lobe. A small infarction is seen in the right testis cerebellar hemisphere. There are multiple foci of T2 prolongation in the periventricular white matter, consistent with chronic small vessel ischemic disease. The ventricular size is appropriate and the basilar cisterns are patent. No evidence of acute hemorrhage, midline shift or abnormal extra-axial fluid collections is seen. IMPRESSION: Small acute lacunar infarctions in the right centrum semiovale and left frontal lobe..
--- NOTE | 2020-01-07 16:04 | MRI ---
MR ANGIOGRAM OF BRAIN: Date: 01/07/2020 HISTORY: Altered mental status. Possible CVA. COMPARISON: None. TECHNIQUE: MR angiogram of the red devil of [place] is performed in the axial plane utilizing 3D time-of -flight imaging. Three-dimensional maximum intensity projection images are submitted for interpretati on. CORRELATION: CT angiogram of head dated 10/31/2017. FINDINGS: Axial 3D [id number] images have some limited evaluation due to motion degradation. Nevertheless, there appears to be long segment mild to moderate stenosis involving the left cavernous and paraclino id segment. Anterior circulation demonstrates grossly symmetric flow-related signal in the M1 segments. Diminutiv e left A1 segment is redemonstrated. Right A2 segment is unremarkable. There does not appear to be si gnificant flow-related signal in the proximal right A2 segment. Nonspecific prominence at the level o f the anterior communicating artery. The possibility of a small aneurysm cannot be entirely excluded. Limited evaluation of intracranial left vertebral artery. Right vertebral artery appears to demonstra te short segment moderate stenosis. The right vertebral artery appears to be the predominantly/sole-s upplying vessel to the basilar artery. There does appear to be short segment severe stenosis involvin g the mid basilar artery. There does appear to be short segment mild narrowing of the mid left P1 seg ment. The right P1 segment appears to be patent. IMPRESSION: 1. 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 2. 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 3. Overall limited evaluation. Further evaluation with CT angiogram of the brain versus conventional angiography is recommended. POS: CET
[2020-01-07 18:52] VITALS: BMI 33.3
--- NOTE | 2020-01-07 20:53 | HP ---
CHIEF COMPLAINT: Syncopal episode and TIA-like symptoms. HISTORY OF PRESENT ILLNESS: An 84-year-old female, very young looking and healthy, went to [employer] and had a witnessed syncopal episode. They also noted her right-sided facial droopy, but that resolved within minutes. The patient did not have any prodrome symptoms, headache, blurriness, tingling, or nausea sensation. The patient denies any lower abdominal pain or flank pain. No dysuria or hematuria. No travel in the last two years. No sick contacts. Her was admitted for pacemaker placement and just discharged at around 11 o'clock and sitting next to his today. Both the patient and her spouse are able to give me a history. The patient had a similar episode in October. She was admitted for expressive aphasia secondary to TIA. At that time, her imaging studies were quite negative. She was not tolerating statin during her last hospitalization, so she is not on Lipitor. Echo done during the last visit in October showed EF of 60%, normal left ventricle size and left atrium. done in 2018; at that time, small foci of restricted diffusion in the white matter structures in the left and right centrum semiovale. Her admission was in 2018 for similar TIA symptoms. ALLERGIES: SHE HAS NO KNOWN DRUG ALLERGY. REVIEW OF SYSTEMS: Thirteen-point review of systems reviewed with the patient. Denies any fever, night sweats, or chills. No appetite change or weight loss. Denies headache, blurriness, tingling, or numbness in her extremities. No productive cough, chest pain, orthopnea, PND, or lower extremity edema. Denies nausea, vomiting, abdominal pain, constipation, diarrhea, hematuria, dysuria, or hematochezia. Denies any polyuria or polydipsia. Denies any rash. No stated depression or anxiety. PAST MEDICAL HISTORY: 1. Episodes of TIA in the past. 2. Type 2 diabetes mellitus. SOCIAL HISTORY: The patient does not smoke or drink alcohol. She lives with her spouse. FAMILY HISTORY: Noncontributory on 84-year-old female. PHYSICAL EXAMINATION: GENERAL: She is afebrile, normotensive. HEENT: Pupils are equal, round, and reactive to light. Anicteric. Mucous membranes are moist. CARDIOVASCULAR: Regular rate and rhythm without murmurs, rubs, or gallops. LUNGS: Clear to auscultation bilaterally without wheezing, rales, or rhonchi. ABDOMEN: Soft, nontender, nondistended. Good bowel sounds. EXTREMITIES: Without any pitting edema. NEUROLOGIC: No focal deficits. Cranial nerves 2 to 12 grossly intact. Strength and sensation grossly and globally intact. LABORATORY DATA: CBC in the normal range. Complete metabolic panel also in the normal range. Urine was little cloudy, nitrite and esterase positive, bacteria 3+. CT head, no intracranial hemorrhage, small vessel disease with evidence of prior right temporal infarction. Chest x-ray, no acute cardiopulmonary finding. IMPRESSION AND PLAN: 1. An 84-year-old obese female with a history of transient ischemic attack in the past as well as type 2 diabetes mellitus, presenting with another transient ischemic attack. Symptoms are right facial droopiness, that is resolved. No tPA time scale and symptoms resolved. Neurologically, she is intact. She was also noted to have a syncopal episode. She will be admitted in the telemetry monitoring. A stroke workup including MRI, MRA, 2D echo, as well as TSH, A1c, and lipid panel. Physical Therapy consult to follow up with us. The patient does not exhibit any sign of motor weakness, but for the completeness of the stroke workup, we will consult them as well. If there is any abnormality in the MRI, we will consider neurology consult. At this time, it is not warranted. a. I believe her transient ischemic attack symptoms may be triggered by urinary tract infection. We will follow with the urine culture. Until then, empiric antibiotic with ceftriaxone. 2. Syncopal episode. It could be vasovagal. Follow with a 2D echo as well as telemonitoring in the next 24 hours. Permissive hypertension. 3. Orthostatic vitals. 4. She can continue with a diabetic diet. 5. Once the MRI is negative, then we can give her oral anticoagulant until then prophylaxis with the sequential compression devices. 6. Full code. Job ID: [id number] [facility]
[2020-01-07] MEDS ORDERED: Atorvastatin Calcium 20 MG TAB PO SCH (21:00)
[2020-01-07] MEDS: Carvedilol 6.25 MG TAB PO SCH (22:25)
[2020-01-08 05:16] LABS: Hemoglobin A1c 5.6 % (4.0-6.0)
[2020-01-08] MEDS: Amlodipine 10 MG TAB PO SCH (09:53)
[2020-01-08] MEDS: Hydrochlorothiazide 25 MG TAB PO SCH (09:53)
[2020-01-08] MEDS: Aspirin 325 mg Enteric Coated Tablet PO SCH (09:53)
[2020-01-08] MEDS: Montelukast Sodium 10 mg Tablet PO SCH (09:53)
[2020-01-08] MEDS: Carvedilol 6.25 MG TAB PO SCH ×2 (09:53→17:24)
[2020-01-08] MEDS: Ramipril 5 MG CAP PO SCH (09:54)
--- NOTE | 2020-01-08 12:44 | PDOC.HOSPP ---
- Subjective Encounter Date: 01/08/20 Encounter Time: 10:10 Subjective: pt feels ok. UTI w.. Ecoli. echo not done. MRI rept d/w her. lacunar infarct. - Objective Vital Signs & Weight: Vital Signs (12 hours) Temp Pulse Pulse Pulse Resp BP BP 01/08/20 11:43 97.7 F 58 L 16 01/08/20 09:25 64 68 162/68 H 164/71 H 01/08/20 07:24 97.5 F L 62 16 01/08/20 04:05 97.7 F 62 18 BP BP BP BP Pulse Ox 01/08/20 11:43 188/78 H 92 L 01/08/20 09:25 01/08/20 07:24 165/68 H 153/71 H 171/82 H 95 01/08/20 04:05 118/64 96 Weight Weight 213 lb I&O: 01/07/20 01/08/20 01/09/20 06:59 06:59 06:59 Intake Total 120 Balance 120 Result Diagrams: 01/07/20 11:44 01/07/20 11:44 Hospitalist ROS - Medication Medications: Active Medications Generic Name Dose Route Start Last Admin Trade Name Freq PRN Reason Stop Dose Admin Amlodipine Besylate 10 mg 01/08/20 09:00 01/08/20 09:53 Norvasc PO 10 mg DAILY ESPINOZA Administration Aspirin 325 mg 01/08/20 09:00 01/08/20 09:53 Ecotrin PO 325 mg DAILY [facility] Administration Carvedilol 6.25 mg 01/07/20 17:00 01/08/20 09:53 Coreg PO 6.25 mg BID- ESPINOZA Administration Hydrochlorothiazide 25 mg 01/08/20 09:00 01/08/20 09:53 Hydrochlorothiazide PO 25 mg DAILY [facility] Administration Montelukast Sodium 10 mg 01/08/20 09:00 01/08/20 09:53 Singulair PO Not Given DAILY ESPINO[facility] Ramipril 10 mg 01/08/20 09:00 01/08/20 09:54 Altace PO 10 mg DAILY ESPINO[facility] Administration - Exam General Appearance: NAD, awake alert Eye: PERRL ENT: normocephalic atraumatic Neck: supple Heart: RRR Respiratory: CTAB, normal chest expansion Gastrointestinal: soft, normal bowel sounds Neurological: cranial nerve grossly intact, no focal deficits Hosp A/P - Plan TIA - her sxs resolved MRI report lacunar infarct and left frontal infarct neuro consult palced ASA, liptiro HLP - not on statin -started lipitor ECOli UTI -sens pending -on CTX dispo - prefers to go home. pending echo and Neuro input.
[2020-01-08] MEDS: cefTRIAXone\\ROCEPHIN 1 GM in Sodium Chloride 0.9% 100 ML IVPB SCH (14:37)
[2020-01-08] MEDS: metFORMIN 500 MG TAB PO SCH (17:24)
[2020-01-08] MEDS: Atorvastatin Calcium 20 MG TAB PO SCH (22:44)
[2020-01-09] MEDS: Hydrochlorothiazide 25 MG TAB PO SCH (08:12)
[2020-01-09] MEDS: Carvedilol 6.25 MG TAB PO SCH ×2 (08:12→17:13)
[2020-01-09] MEDS: Ramipril 5 MG CAP PO SCH (08:12)
[2020-01-09] MEDS: Amlodipine 10 MG TAB PO SCH (08:12)
[2020-01-09] MEDS: Aspirin 325 mg Enteric Coated Tablet PO SCH (09:34)
[2020-01-09] MEDS: metFORMIN 500 MG TAB PO SCH ×2 (09:34→17:13)
[2020-01-09] MEDS: Montelukast Sodium 10 mg Tablet PO SCH (09:34)
--- NOTE | 2020-01-09 13:55 | PDOC.HOSPP ---
- Subjective Encounter Date: 01/09/20 Encounter Time: 13:45 Subjective: f/u for acute/subacute lacunar infarcts in R centrum semiovale/ L frontal lobe on current ASA/Lipitor. Nursing reports labile BP despite current BP regimen. Pt states she feels ok overall except for weakness. - Objective Vital Signs & Weight: Vital Signs (12 hours) Temp Pulse Resp BP BP BP BP 01/09/20 13:08 61 01/09/20 13:07 209/85 H 01/09/20 12:29 99.7 F H 66 18 209/85 H 01/09/20 09:25 130/56 L 01/09/20 08:12 58 L 193/74 H 01/09/20 08:07 98.6 F 58 L 20 193/74 H 01/09/20 08:00 154/74 H 01/09/20 07:50 01/09/20 05:33 97.8 F 60 12 BP BP BP Pulse Ox Pulse Ox 01/09/20 13:08 187/73 H 01/09/20 13:07 01/09/20 12:29 96 01/09/20 09:25 167/76 H 170/73 H 01/09/20 08:12 01/09/20 08:07 94 L 01/09/20 08:00 93 L 01/09/20 07:50 94 L 01/09/20 05:33 151/71 H 92 L Weight Weight 213 lb I&O: 01/08/20 01/09/20 01/10/20 06:59 06:59 06:59 Intake Total 120 480 300 Balance 120 480 300 Result Diagrams: 01/07/20 11:44 01/07/20 11:44 Additional Labs: Microbiology 01/07/20 12:30 Urine clean catch Urine Culture - Final Escherichia coli Laboratory Tests 01/07/20 01/07/20 01/08/20 11:44 11:44 04:50 Hemoglobin A1c 5.6 Triglycerides 191 H Cholesterol 179 LDL Cholesterol, Calc 99 HDL Cholesterol 42 TSH 3rd Generation [phone] Radiology Reviewed by me: Yes (MRI - lacunar infarcts in R centrum semiovale/L frontal lobe, ECHO - neg) EKG Reviewed by me: Yes (Tele - SR) Hospitalist ROS - Medication Medications: Active Medications Generic Name Dose Route Start Last Admin Trade Name Freq PRN Reason Stop Dose Admin Amlodipine Besylate 10 mg 01/08/20 09:00 01/09/20 08:12 Norvasc PO 10 mg DAILY [facility] Administration Aspirin 325 mg 01/08/20 09:00 01/09/20 09:34 Ecotrin PO 325 mg DAILY [facility] Administration Atorvastatin Calcium 20 mg 01/08/20 21:00 01/08/20 22:44 Lipitor PO 20 mg HS ESPINOZA Administration Clonidine 0.1 mg 01/07/20 14:23 01/09/20 13:07 Catapres PO 0.1 mg Q4H PRN Administration SBP >160 Hydrochlorothiazide 25 mg 01/08/20 09:00 01/09/20 08:12 Hydrochlorothiazide PO 25 mg DAILY [facility] Administration Ceftriaxone Sodium 1 gm/ 100 mls @ 200 mls/hr 01/08/20 14:00 01/08/20 14:37 Sodium Chloride IVPB 100 mls 1400 ESPINOZA Administration Metformin HCl 1,000 mg 01/08/20 17:00 01/09/20 09:34 Glucophage PO 1,000 mg BID-WM [facility] Administration Montelukast Sodium 10 mg 01/08/20 09:00 01/09/20 09:34 Singulair PO Not Given DAILY [facility] Ramipril 10 mg 01/08/20 09:00 01/09/20 08:12 Altace PO 10 mg DAILY [facility] Administration - Exam General Appearance: NAD, awake alert Eye: PERRL, anicteric sclera ENT: normocephalic atraumatic Neck: supple, symmetric, no JVD, no thyromegaly, no lymphadenopathy Heart: RRR, no murmur, no gallops, no rubs, normal peripheral pulses Respiratory: CTAB, no wheezes, no rales, no ronchi, normal chest expansion Gastrointestinal: soft, non-tender, non-distended, normal bowel sounds, no palpable masses Extremities: no cyanosis, no clubbing, no edema Skin: normal turgor, no lesions Neurological: cranial nerve grossly intact, no new deficit Musculoskeletal: normal tone, generalized weakness Psychiatric: A&O x 3 Hosp A/P (1) CVA (cerebral vascular accident) Code(s): I63.9 - CEREBRAL INFARCTION, UNSPECIFIED Status: Acute Qualifiers: Laterality of affected vessel: bilateral Plan: small lacunar infarcts noted, continue ASA/Lipitor, BP control (2) HTN (hypertension) Code(s): I10 - ESSENTIAL (PRIMARY) HYPERTENSION Status: Chronic Qualifiers: Hypertension type: essential hypertension Qualified Code(s): I10 - Essential (primary) hypertension Plan: Labile, increase Coreg 12.5mg BID, continue Amlodipine/HCTZ/Altace, serial BP monitoring (3) Hypertensive urgency Code(s): I16.0 - HYPERTENSIVE URGENCY Status: Acute (4) CKD (chronic kidney disease) stage 3, GFR 30-59 ml/min Status: Chronic Plan: Stable currently, avoid nephrotoxic meds and limit contrast exposure (5) DM type 2 (diabetes mellitus, type 2) Status: Chronic Plan: Continue ISS, Metformin, serial accuchecks - Plan PT/OT, director of social services, out of bed/ambulate, DVT proph w/SCDs Stable currently Continue ASA/Lipitor Increase Coreg 12.5mg BID Continue current BP regimen OOB with PT Likely home in 24h if BP trend improved
[2020-01-09] MEDS ORDERED: Iopamidol 370 76% 100 ML VIAL ONE (14:27)
[2020-01-09] MEDS: cefTRIAXone\\ROCEPHIN 1 GM in Sodium Chloride 0.9% 100 ML IVPB SCH (14:44)
--- NOTE | 2020-01-09 16:24 | EKG ---
Test Reason : Blood Pressure : / mmHG Vent. Rate : 060 BPM Atrial Rate : 060 BPM P-R Int : 160 ms QRS Dur : 082 ms QT Int : 442 ms P-R-T Axes : 043 023 125 degrees QTc Int : 442 ms Normal sinus rhythm Nonspecific ST and T wave abnormality Abnormal ECG Confirmed by LIZ EDMONDSON M.D. ([id number]), social media editor NATALI MACIEL ([id number]) on 01/09/2020 4:24:14 PM Referred By: Confirmed By:LIZ EDMONDSON M.D.
--- NOTE | 2020-01-09 19:17 | CT ---
CT angiogram head CT angiogram neck: 01/09/2020 COMPARISON: None HISTORY: Evaluate for acute infarction TECHNIQUE: Axial CT imaging at 5 mm intervals from vertex through skull base without contrast. Subseq uently, axial CT imaging at 1.25 mm intervals from lung apices through vertex with IV contrast using CT angiogram protocol. Coronal and sagittal 3-D reformatted imaging obtained. FINDINGS: The axial noncontrast enhanced imaging demonstrates extensive periventricular, deep, and james bcortical white matter hypodensity, evidence of significant small vessel disease. There is encephalomalacia within the temporal lobe laterally on the right as well. The noncontrast enhanced im aging demonstrates no evidence for intracranial hemorrhage, midline shift, or mass effect. The visualized paranasal sinuses and mastoid air cells appear well aerated. There is mild mucosal thi ckening of the sphenoid sinus on the right. On the postcontrast imaging, evaluation of the imaged lung apices is unremarkable. There are nodules within the right and left lobe of the thyroid gland, measuring up to 2 cm inferiorly on the left. Recommend follow-up thyroid ultrasound. There is scattered atherosclerotic calcification of the aortic arch. There is atherosclerotic calcifi cation at the origin of the innominate artery, left subclavian artery, and left common carotid artery with associated mild stenosis of the great vessels. There is a mild/moderate degree of stenosi s at the origin of the right subclavian artery on the basis of calcified plaque. On the basis of NASCET criteria, there is no hemodynamically significant stenosis involving the common carotid artery on either side. There is partially calcified atherosclerotic plaque involving the proximal ICA bilaterally, right gre ater than left. There is a beaded appearance of the cervical segment of the internal carotid artery on the left which may signify fibromuscular dysplasia. At the origin of the left internal carotid artery there is stenosis of approximately 50%. There is prominent circumferential atherosclerotic plaque involving the distal right CCA and proximal right ICA. There is a focal area of stenosis within the proximal right ICA estimated in the 50% range. The distal cervical ICA is tortuous on the right. The retroantral fat and parapharyngeal fat appears clear bilaterally. The parotid glands and the subm andibular glands appear unremarkable bilaterally. Region of the tonsillar pillars, epiglottis and preepiglottic fat, hyoid bone, thyroid cartilage, and cricoid cartilage appears unremarkable. No evidence for lymphadenopathy is seen within the neck. There is atherosclerotic calcification at the origin of the right vertebral artery with probable unde rlying stenosis. There is atherosclerotic calcification involving the distal vertebral artery bilaterally. The vertebral artery on the left is heavily diseased distally and appears to end in PICA. There is severe multifocal atherosclerotic calcification of the distal right vertebral artery with a focal area of severe stenosis approaching occlusion of the distal right vertebral artery on axial image 137. The basilar artery is irregular proximally with a focal area of severe basilar artery stenosis on axi al image 156. The posterior cerebral arteries appear patent. There is severe atherosclerotic calcification involving the cavernous segment of bilateral internal c arotid arteries. There is moderate/severe stenosis of the distal right M1 segment. MCA bifurcation and distal MCA branches appear grossly unremarkable. The A1 segment appears patent bilaterally. There is multifocal prominent atherosclerotic disease invo lving the distal MAINOR branches with numerous areas of stenosis. Review of the osseous structures demonstrates significant multilevel cervical spine degenerative salas ge with multilevel disc space narrowing degenerative endplate change and osteophyte formation. No worrisome lytic or blastic bone lesion. IMPRESSION: Noncontrast enhanced head CT demonstrates no evidence for intracranial hemorrhage Extensive atherosclerotic disease involving the arterial structures of the head and neck as detailed above. Abnormal appearance of the thyroid gland, for which a follow-up thyroid ultrasound is suggested.
--- NOTE | 2020-01-09 19:21 | CON ---
DATE OF TELEMEDICINE CONSULTATION: 01/09/2020 CHIEF COMPLAINT: Loss of consciousness. HISTORY OF PRESENT ILLNESS: The patient is an 84-year-old lady, who is known to have diabetes in her past medical history. She reports she passed out and was brought to the hospital. She did not have any dizziness. She is not sure of the total period for which she had lost consciousness and she also is very active and independent at home. She did not experience any weakness or numbness. No change in her speech and history per chart states that she had mild right-sided facial droop and that resolved within a few minutes and this was witnessed event at [facility]. The patient had no pre-existing issues such as headache or blurred vision or double vision or dizziness. She reported her was just discharged home the same day that she was admitted. The patient had a similar episode in October and then she was admitted for expressive aphasia due to TIA and she was given a statin, but she was unable to tolerate it. She is not on Lipitor at this time. She does take aspirin on a daily basis. PREVIOUS MEDICAL HISTORY: History of a TIA in October, diabetes type 2. FAMILY HISTORY: Her father at 65. Mother at 83. She is an only child and she has three children between ages 62 to 58. All her children are healthy. SOCIAL HISTORY: She lives with her . She does not smoke or drink alcohol. ALLERGIES: SHE HAS NO KNOWN DRUG ALLERGIES. MEDICATIONS: At home, she takes; 1. Aspirin. 2. Albuterol. 3. Amlodipine. 4. Carvedilol. 5. Clonidine. 6. Hydrochlorothiazide. 7. Metformin. 8. Montelukast. 9. Sodium. 10. Ramipril. 11. Senokot. REVIEW OF SYSTEMS: PULMONARY: Negative for shortness of breath or cough. GI: Negative for nausea, vomiting, or diarrhea. HEMATOLOGIC: Negative for any bleeding diathesis. OPHTHALMOLOGIC: Negative for vision issues. ENT: Negative for any hearing problems. NEUROLOGIC: Positive for loss of consciousness. LABORATORY DATA: White count 8.7, hemoglobin 14.1, hematocrit 44.1, and platelet count 195. Sodium 142, potassium 4.3, chloride 103, bicarb 29, BUN 25, creatinine 0.96, glucose 104. Hemoglobin A1c 5.6, triglyceride 191, cholesterol 179, LDL 99, HDL 42. Heart disease risk ratio 4.3, TSH 1.6997. Her echocardiogram was reviewed and there was no evidence of any clot. Her left ventricular size and function were normal. She did have a brain MRI which was performed on the 12. MRI of the brain shows focus of restricted diffusion in the right centrum semiovale and 13 mm focus of restricted diffusion in the posterior medial aspect of the left frontal lobe and there is encephalomalacia due to old infarction in the right temporal lobe and then also multiple foci of T2 prolongation in the periventricular white matter consistent with chronic small-vessel ischemic disease and her MR angiogram was also reviewed and this showed short segment moderate stenosis of the basilar artery, questionable anterior communicating artery aneurysm overall limited evaluation and further evaluation with CTA is recommended. PHYSICAL EXAMINATION: VITAL SIGNS: Temperature 98.4, pulse 57, blood pressure 128/51, respiratory rate 16. GENERAL APPEARANCE: Well-built, well-nourished lady, who is comfortable in bed. CHEST: Clear vesicular breathing. CARDIOVASCULAR: S1 and S2 heard. No murmurs. ABDOMEN: Soft. NEUROLOGICAL: Higher intellectual functions. Normal orientation to time, place , and person. Appropriate conversation. Cranial nerves 2 through 12. Normal extraocular movements and pupils are 2 mm, reactive to light bilaterally and normal sensation of face bilaterally. Tongue midline. No atrophy noted. Normal elevation of palate bilaterally and decreased hearing to finger rub on the left side. Motor examination bulk normal, tone normal, strength 5/5 throughout. Deep tendon reflexes were 1+ throughout and muscle groups tested are iliopsoas, hamstrings, quadriceps, ankle dorsiflexion, plantar flexion, deltoid, biceps, triceps, wrist extension and flexion, finger extension and flexion bilaterally and sensory examination normal to touch bilaterally in upper and lower extremities. Cerebellar, normal finger-to- nose and [id number]. IMPRESSION: The patient is an 84-year-old lady, who had a syncopal event at a hair salon and her angiogram results are inconclusive and radiologist recommended CT angiogram of the head and neck. At this time, her MRI does show a small acute event in the centrum semiovale and I do not think that cost her syncopal event. She might have diminished flow in the vertebral arteries when she was extending her neck possibly during the hair appointment. This is unclear to me at this time. RECOMMENDATIONS: Aspirin for stroke prophylaxis and I will request a CT angiogram for later today, so we can complete that study for her, so we can visualize if she has any vertebral artery stenosis and the patient can either be on statin or one of the other agents for controlling her cholesterol and balancing her lipid profile. This decision can be made by the primary admitting team. At this time, call Neurology if you have any further questions. Job ID: [id number] MTDD
[2020-01-09] MEDS: Atorvastatin Calcium 20 MG TAB PO SCH (22:29)
[2020-01-10] MEDS: Carvedilol 6.25 MG TAB PO SCH (08:56)
[2020-01-10] MEDS: Amlodipine 10 MG TAB PO SCH (08:56)
[2020-01-10] MEDS: metFORMIN 500 MG TAB PO SCH (08:56)
[2020-01-10] MEDS: Montelukast Sodium 10 mg Tablet PO SCH (08:56)
[2020-01-10] MEDS: Hydrochlorothiazide 25 MG TAB PO SCH (08:57)
[2020-01-10] MEDS: Aspirin 325 mg Enteric Coated Tablet PO SCH (08:57)
[2020-01-10] MEDS: Ramipril 5 MG CAP PO SCH (08:57)
--- NOTE | 2020-01-10 10:45 | DIS ---
DATE OF ADMISSION: 01/07/2020 DATE OF DISCHARGE: 01/10/2020 DISCHARGE DIAGNOSES: 1. Acute/subacute lacunar infarcts in the right centrum semiovale and left frontal lobe. 2. Hypertension, improved. 3. Hypertensive urgency, resolved. 4. Chronic kidney disease stage 3. 5. Diabetes mellitus type 2, controlled. CONSULTATIONS: Dr. Chavira with Neurology Service. PERTINENT LABORATORY AND X-RAY FINDINGS: Basic metabolic profile within normal limits. Total cholesterol 179, triglycerides 191, HDL 42, LDL 99, TSH 1.7, hemoglobin A1c 5.6. Urine culture dated, 01/07/2020, it greater than 100,000 colonies of E. coli pansensitive. MRI of the brain dated, 01/07/2020, showed small acute lacunar infarctions in the right centrum semiovale and left frontal lobe. MRA of the brain dated, 01/07/2020, showed moderate stenosis involving the left basilar artery, questionable anterior communicating artery aneurysm. Portable chest x-ray dated, 01/07/2020, showed no acute cardiopulmonary process. CT of the brain without contrast dated, 01/07/2020, showed severe ischemic white matter changes. Previous right temporal infarct noted. 2D transthoracic echocardiogram dated, 01/08/2020, showed ejection fraction of 55% to 60%. Normal study. CT angiogram of the [place] dated, 01/09/2020, showed extensive atherosclerotic changes in the arterial structures of the head and neck. HOSPITAL COURSE: The patient was admitted to the Stroke Unit after initially presenting with syncopal episode and TIA symptoms. The patient underwent extensive evaluation with multiple neuroimaging studies with initial CT imaging showing no acute process. MRI imaging of the brain did reveal small acute lacunar infarcts in the areas described previously. The patient continued aspirin 325 mg daily with additional Lipitor 20 mg daily. Evaluation by the Neurology Service recommended continuation of aspirin in addition to a statin agent and risk factor modification. The patient was increased on Coreg to 12.5 mg b.i.d. with overall improvement in blood pressure trend. The patient was evaluated by the Physical and Occupational Therapy Service with recommendations for ongoing Home Health including Physical Therapy with use of a rolling walker for ambulation. Overall, the patient did remain clinically stable during the hospital course. The patient was treated for urinary tract infection with Escherichia coli species, transitioning to oral Levaquin to complete a 7-day course of antibiotics after discharge. I have examined the patient at the time of discharge and discussed followup instructions. The patient verbalizes understanding and in agreement, ready for discharge, 01/10/2020. DISCHARGE MEDICATIONS: 1. Albuterol sulfate 2 puffs inhaled q.6 hours p.r.n. 2. Hydrochlorothiazide 25 mg p.o. daily. 3. Metformin 1000 mg p.o. b.i.d. 4. Singulair 10 mg p.o. daily. 5. Ramipril 10 mg p.o. daily. 6. Norvasc 10 mg p.o. daily. 7. Enteric-coated aspirin 325 mg p.o. daily. 8. Lipitor 20 mg p.o. at bedtime. 9. Coreg 12.5 mg p.o. b.i.d. 10. Clonidine 0.1 mg p.o. q.4 hours p.r.n. 11. [place]-3 fatty acids 1000 mg p.o. daily. 12. Levaquin 500 mg p.o. daily x7 days. FOLLOWUP: The patient will follow up with Dr. Ciro Dixon within 7 days of discharge. CONDITION ON DISCHARGE: Fair. ACTIVITY: Ad blossom, rolling walker with standby assistance and fall risk precautions. SPECIAL INSTRUCTIONS: The patient will receive Home Health Services including physical therapy at discharge. DIET: ADA. CODE STATUS: Full. DISPOSITION: Home with Home Health including physical therapy 01/10/2020. TIME SPENT: Total time preparing and coordinating discharge, 35 minutes. Job ID: [id number]
[2020-01-10] MEDS: cefTRIAXone\\ROCEPHIN 1 GM in Sodium Chloride 0.9% 100 ML IVPB SCH (13:15)
[2020-01-10 15:29] VITALS: BP 115/53; TEMP 97.4
== END 2020-01-10 17:16 | disposition home health service (06) | DRG 65 ==
LOC: ERS 11:14 → ERHOLD 14:15 → OBSVTOIN 16:47 → 2SW 18:41 → 2SE 01-08 16:10
PROVIDERS: ADMIT Internal Medicine; ATTEND Internal Medicine
DX: I63.9 Cerebral infarction, unspecified (principal); N39.0 Urinary tract infection, site not specified; I16.0 Hypertensive urgency; I12.9 Hypertensive chronic kidney disease with stage 1 through stage 4 chronic kidney disease, or unspecified chronic kidney disease; N18.3 Chronic kidney disease, stage 3 (moderate); E11.9 Type 2 diabetes mellitus without complications; B96.29 Other Escherichia coli [E. coli] as the cause of diseases classified elsewhere
CPT/HCPCS: 36415; 70450; 70496; 70498; 70544; 70551; 71045; 80053; 80061; 81003; 81015; 83036; 84443; 84484; 85025; 87077; 87086; 87186; 93005; 93306; 96365; J0696; J3490; Q9967